=== PATIENT | female | born 1960 | race Caucasian/White ===

== ENCOUNTER 2020-10-26 15:14 | Emergency (ER) | payer MEDICAID ==
[~2020-10-26] VITALS: Ht 170.2 cm; Wt 73.0 kg
[2020-10-26] MEDS ORDERED: ACETAMINOPHEN 325MG TABLET PO STA (17:47)
[2020-10-26 18:38] LABS: BASOPHILS % 0.3 % (0.0-2.0); EOSINOPHILS % 0.9 % (0.0-5.0); HEMATOCRIT. 39.8 % (36.0-48.0); HEMOGLOBIN. 14.2 g/dL (12.0-16.0); LYMPHOCYTES % 15.6 % (20.0-50.0); MEAN CORPUSCULAR HEMOGLOBIN 32.3 pg (28.0-32.0); MEAN CORPUSCULAR VOLUME 90.5 fL (81.0-99.0); MEAN PLATELET VOLUME 8.5 fl (7.4-10.4); MONOCYTES % 7.5 % (2.0-8.0); NEUTROPHILS % 75.7 % (40.0-76.0); PLATELET 202 x1000/uL (130-400); RED BLOOD CELL COUNT 4.39 mill/uL (4.2-5.4)
[2020-10-26 18:43] LABS: CHLORIDE 103 mEq/L (98-107)
[2020-10-26] MEDS ORDERED: OMEP20CA14 MT (20:08)
[2020-10-26] MEDS ORDERED: GABA-532 MT (20:08)
[2020-10-26] MEDS ORDERED: QUET50TA PO ×3 (20:08→21:23)
[2020-10-26 23:00] VITALS: BP 135/84
== END 2020-10-27 00:54 | disposition home or self-care (01) ==
LOC: ER 15:14
DX: R10.13 Epigastric pain (principal); N83.201 Unspecified ovarian cyst, right side; I10 Essential (primary) hypertension; F31.9 Bipolar disorder, unspecified; Z96.641 Presence of right artificial hip joint; Z88.6 Allergy status to analgesic agent
CPT/HCPCS: 36415; 74176; 80053; 85025; 93005; 99285